=== PATIENT | female | born 1975 | race Caucasian/White ===

== ENCOUNTER 2017-06-21 22:38 | Inpatient (IN) | payer MEDICARE, OTHER ==
[~2017-06-21] VITALS: Ht 157.5 cm; Wt 57.6 kg
[~2017-06-21 22:38] MED LIST: COLACE 100MG C100 MG PO
[2017-06-22 00:21] LABS: HEMOGLOBIN 11.8 gm/dl (12.3-15.3); RED BLOOD COUNT 4.11 M/UL (4.00-5.10); WHITE BLOOD COUNT 5.1 K/UL (4.5-11.0)
[2017-06-23 03:19] LABS: HEMOGLOBIN 11.7 gm/dl (12.3-15.3)
[2017-06-23 10:12] LABS: HEMOGLOBIN 11.4 gm/dl (12.3-15.3); RED BLOOD COUNT 3.97 M/UL (4.00-5.10)
[2017-06-23 10:13] LABS: WHITE BLOOD COUNT 8.7 K/UL (4.5-11.0)
[2017-06-24 09:42] LABS: HEMOGLOBIN 12.9 gm/dl (12.3-15.3); WHITE BLOOD COUNT 8.3 K/UL (4.5-11.0)
[2017-06-24 10:31] LABS: RED BLOOD COUNT 4.42 M/UL (4.00-5.10)
[2017-06-24] MEDS ORDERED: TRANDATE 200 M200 MG PO (17:06)
== END 2017-06-25 17:05 | disposition home or self-care (01) | DRG 774 ==
LOC: GENOP 22:38 → OB 23:04
PROVIDERS: Obstetrics & Gynecology; ADMIT Obstetrics & Gynecology
PROC: 10E0XZZ Delivery of Products of Conception, External Approach (ICD-10-PCS; principal; 2017-06-22)
DX: O69.81X0 Labor and delivery complicated by cord around neck, without compression, not applicable or unspecified (principal); O10.92 Unspecified pre-existing hypertension complicating childbirth; O99.113 Other diseases of the blood and blood-forming organs and certain disorders involving the immune mechanism complicating pregnancy, third trimester; Z3A.38 38 weeks gestation of pregnancy; Z37.0 Single live birth; O09.523 Supervision of elderly multigravida, third trimester; O09.43 Supervision of pregnancy with grand multiparity, third trimester; D69.6 Thrombocytopenia, unspecified; H54.0 Blindness, both eyes
CPT/HCPCS: 36415; 51702; 82800; 83735; 85014; 85018; 85025; J0290; J0610; J1580; J2405; J2590; J2795; J3010; J7050; J7120

== ENCOUNTER 2021-10-01 19:44 | Inpatient (IN) | payer MEDICARE, OTHER ==
[~2021-10-01] VITALS: Ht 157.5 cm; Wt 67.6 kg
[~2021-10-01 19:44] MED LIST changes: +FEOSOL325 MG PO; +TRANDATE 200 M200 MG PO
[2021-10-01 22:19] LABS: HEMOGLOBIN 12.9 gm/dl (12.3-15.3); RED BLOOD COUNT 3.76 M/UL (4.00-5.10); WHITE BLOOD COUNT 5.3 K/UL (4.5-11.0)
[2021-10-02] MEDS ORDERED: PRENATABS RX T1 EACH PO (00:11)
[2021-10-02] MEDS ORDERED: NIFEDIPINE ER30 MG PO (00:21)
[2021-10-05] MEDS ORDERED: DOCUSATE SODIU250 MG PO (13:47)
[2021-10-05] MEDS ORDERED: TRANDATE 100 M100 MG PO (13:47)
[2021-10-05] MEDS ORDERED: IBUPROFEN600 MG PO (13:47)
[2021-10-05] MEDS ORDERED: HYDROCODONE-AC1 EACH PO (13:47)
== END 2021-10-05 17:45 | disposition home or self-care (01) | DRG 786 ==
LOC: OB 19:44
PROVIDERS: Obstetrics & Gynecology; ADMIT Obstetrics & Gynecology
PROC: 10907ZC Drainage of Amniotic Fluid, Therapeutic from Products of Conception, Via Natural or Artificial Opening (ICD-10-PCS; 2021-10-03)
PROC: 10D00Z1 Extraction of Products of Conception, Low, Open Approach (ICD-10-PCS; principal; 2021-10-03 01:11)
DX: O76 Abnormality in fetal heart rate and rhythm complicating labor and delivery (principal); O41.1230 Chorioamnionitis, third trimester, not applicable or unspecified; Z3A.39 39 weeks gestation of pregnancy; Z20.822 Contact with and (suspected) exposure to COVID-19; Z37.0 Single live birth; O13.4 Gestational [pregnancy-induced] hypertension without significant proteinuria, complicating childbirth; O24.420 Gestational diabetes mellitus in childbirth, diet controlled; O62.1 Secondary uterine inertia; O62.2 Other uterine inertia; H54.8 Legal blindness, as defined in USA
CPT/HCPCS: 36415; 81001; 82962; 83735; 85014; 85018; 85025; C9113; J0290; J0360; J0610; J0690; J1170; J1580; J2274; J2300; J2405; J2550; J2590; J2795; J3010; J3475; J7120; U0002

== ENCOUNTER 2021-11-04 17:26 | Emergency (ER) | payer MEDICARE, OTHER ==
[~2021-11-04 17:26] MED LIST changes: +DOCUSATE SODIU250 MG PO; +HYDROCODONE-AC1 EACH PO; +IBUPROFEN600 MG PO; +NIFEDIPINE ER30 MG PO; +PRENATABS RX T1 EACH PO; +TRANDATE 100 M100 MG PO
[2021-11-04 18:00] LABS: RED BLOOD COUNT 4.54 M/UL (4.00-5.10); WHITE BLOOD COUNT 4.6 K/UL (4.5-11.0)
[2021-11-04 18:28] LABS: BUN/CREATININE RATIO 12 (0-10)
== END 2021-11-04 18:15 | disposition home or self-care (01) ==
LOC: ER1 17:26
PROVIDERS: Emergency Medicine
DX: O14.95 Unspecified pre-eclampsia, complicating the puerperium (principal); Z20.822 Contact with and (suspected) exposure to COVID-19
CPT/HCPCS: 71045; 80053; 82550; 82553; 83615; 83874; 84484; 85025; 85610; 85730; 93005; 96374; 99284; J0360; J2060; U0002

== ENCOUNTER 2021-11-04 18:19 | Inpatient (IN) | payer MEDICARE, OTHER ==
[~2021-11-04] VITALS: Ht 157.5 cm; Wt 54.4 kg
[2021-11-05 18:11] LABS: HEMOGLOBIN 14.7 gm/dl (12.3-15.3); RED BLOOD COUNT 4.43 M/UL (4.00-5.10); WHITE BLOOD COUNT 5.5 K/UL (4.5-11.0)
[2021-11-05 18:38] LABS: BUN/CREATININE RATIO 12 (0-10)
[2021-11-07 05:22] LABS: BUN/CREATININE RATIO 14 (0-10)
[2021-11-07] MEDS ORDERED: ATORVASTATIN CA20 MG PO (15:47)
[2021-11-07] MEDS ORDERED: LABETALOL HCL100 MG PO (15:47)
[2021-11-07] MEDS ORDERED: ASPIRIN EC81 MG PO (15:47)
[2021-11-07] MEDS ORDERED: CATAPRES 0.1MG0.1 MG PO (15:47)
[2021-11-07] MEDS ORDERED: AMLODIPINE BESYL5 MG PO (15:47)
[2021-11-07] MEDS ORDERED: STOOL SOFTENER250 MG PO (15:47)
== END 2021-11-07 19:25 | disposition home or self-care (01) | DRG 776 ==
LOC: OB 18:19 → M/S 11-06 16:29
PROVIDERS: Internal Medicine Infectious Disease; ADMIT Obstetrics & Gynecology
DX: O99.355 Diseases of the nervous system complicating the puerperium (principal); G45.9 Transient cerebral ischemic attack, unspecified; I67.4 Hypertensive encephalopathy; O99.893 Other specified diseases and conditions complicating puerperium; R47.81 Slurred speech; Z20.822 Contact with and (suspected) exposure to COVID-19; H54.7 Unspecified visual loss; Z98.890 Other specified postprocedural states; Z82.3 Family history of stroke; Z79.899 Other long term (current) drug therapy; Z79.82 Long term (current) use of aspirin
CPT/HCPCS: ECHO; 36415; 70450; 70544; 70551; 71045; 80048; 80053; 80061; 81001; 82550; 82553; 82962; 83615; 83735; 83874; 84484; 84550; 85025; 85384; 85610; 85730; 93005; 93306; 93880; 96360; 96366; 96374; 99284; J0360; J1200; J2060; J2765; J3475; J7120; U0002

== ENCOUNTER 2021-11-23 02:41 | Emergency (ER) | payer MEDICARE, OTHER ==
[~2021-11-23 02:41] MED LIST changes: +AMLODIPINE BESYL5 MG PO; +ASPIRIN EC81 MG PO; +ATORVASTATIN CA20 MG PO; +CATAPRES 0.1MG0.1 MG PO; +LABETALOL HCL100 MG PO; +STOOL SOFTENER250 MG PO
[2021-11-23 03:54] LABS: HEMOGLOBIN 14.5 gm/dl (12.3-15.3); RED BLOOD COUNT 4.59 M/UL (4.00-5.10); WHITE BLOOD COUNT 5.1 K/UL (4.5-11.0)
[2021-11-23 04:00] LABS: BUN/CREATININE RATIO 11 (0-10)
== END 2021-11-23 05:15 | disposition home or self-care (01) ==
LOC: ER1 02:41
PROVIDERS: Student in an Organized Health Care Education/Training Program
DX: I10 Essential (primary) hypertension (principal)
CPT/HCPCS: 80048; 80076; 81001; 82550; 82553; 84484; 85025; 93005; 99284

== ENCOUNTER 2021-12-08 21:19 | Emergency (ER) | payer MEDICARE, OTHER ==
[~2021-12-08 21:19] MED LIST changes: +HYDROCHLOROTH12.5 MG PO; +OMNICEF 300 MG300 MG PO
[2021-12-09] MEDS ORDERED: LISINOPRIL5 MG PO (00:53)
[2021-12-09] MEDS ORDERED: CATAPRES 0.1MG0.1 MG PO (00:55)
== END 2021-12-09 01:07 | disposition home or self-care (01) ==
LOC: ER1 21:19
DX: Z76.0 Encounter for issue of repeat prescription (principal); I10 Essential (primary) hypertension; Z88.8 Allergy status to other drugs, medicaments and biological substances
CPT/HCPCS: 99281

== ENCOUNTER 2021-12-10 10:36 | Emergency (ER) | payer MEDICARE, OTHER ==
[~2021-12-10 10:36] MED LIST changes: +LISINOPRIL5 MG PO
[2021-12-10 11:54] LABS: HEMOGLOBIN 14.2 gm/dl (12.3-15.3); RED BLOOD COUNT 4.37 M/UL (4.00-5.10); WHITE BLOOD COUNT 3.6 K/UL (4.5-11.0)
[2021-12-10 12:11] LABS: BUN/CREATININE RATIO 12 (0-10)
== END 2021-12-10 11:31 | disposition home or self-care (01) ==
LOC: ER1 10:36
PROVIDERS: Physician Assistant
DX: I10 Essential (primary) hypertension (principal); E87.6 Hypokalemia; Z79.82 Long term (current) use of aspirin
CPT/HCPCS: 80048; 82550; 82553; 84484; 85025; 93005; 99283

== ENCOUNTER 2022-01-05 20:05 | Emergency (ER) | payer MEDICARE, OTHER ==
[2022-01-05 21:00] LABS: HEMOGLOBIN 13.6 gm/dl (12.3-15.3); RED BLOOD COUNT 4.19 M/UL (4.00-5.10); WHITE BLOOD COUNT 5.6 K/UL (4.5-11.0)
[2022-01-05 21:21] LABS: BUN/CREATININE RATIO 15 (0-10)
[2022-01-05] MEDS ORDERED: LOPRESSOR 50 MG50 MG GT (23:54)
== END 2022-01-06 00:05 | disposition home or self-care (01) ==
LOC: ER1 20:05
PROVIDERS: Physician Assistant Medical
DX: R51.9 Headache, unspecified (principal); I10 Essential (primary) hypertension; Z91.040 Latex allergy status; Z88.8 Allergy status to other drugs, medicaments and biological substances
CPT/HCPCS: 70450; 71045; 80053; 82550; 82553; 84484; 85025; 93005; 99284

== ENCOUNTER 2022-01-29 20:20 | Emergency (ER) | payer MEDICARE, OTHER ==
[~2022-01-29 20:20] MED LIST changes: +LOPRESSOR 50 MG50 MG GT
[2022-01-29 21:08] LABS: HEMOGLOBIN 14.2 gm/dl (12.3-15.3); RED BLOOD COUNT 4.37 M/UL (4.00-5.10); WHITE BLOOD COUNT 3.2 K/UL (4.5-11.0)
[2022-01-29 21:33] LABS: BUN/CREATININE RATIO 13 (0-10)
== END 2022-01-30 03:47 | disposition home or self-care (01) ==
LOC: ER1 20:20
PROVIDERS: Physician Assistant Medical
DX: I10 Essential (primary) hypertension (principal); Z88.8 Allergy status to other drugs, medicaments and biological substances; Z91.040 Latex allergy status
CPT/HCPCS: 71045; 80053; 82550; 82553; 84484; 85025; 93005; 99283

== ENCOUNTER 2022-02-01 23:38 | Emergency (ER) | payer MEDICARE, OTHER ==
[2022-02-02 00:33] LABS: HEMOGLOBIN 14.9 gm/dl (12.3-15.3); RED BLOOD COUNT 4.59 M/UL (4.00-5.10); WHITE BLOOD COUNT 3.3 K/UL (4.5-11.0)
[2022-02-02 00:57] LABS: BUN/CREATININE RATIO 18 (0-10)
== END 2022-02-02 04:48 | disposition home or self-care (01) ==
LOC: ER1 23:38
PROVIDERS: Family Medicine
DX: R07.9 Chest pain, unspecified (principal); L29.9 Pruritus, unspecified; I10 Essential (primary) hypertension; F41.9 Anxiety disorder, unspecified; Z88.8 Allergy status to other drugs, medicaments and biological substances
CPT/HCPCS: 71046; 80053; 82550; 82553; 84484; 85025; 93005; 99285

== ENCOUNTER → 2022-02-15 | Outpatient (CLI) | payer MEDICARE, OTHER | LOC: KOH-I 08:15 | DX: R10.84 Generalized abdominal pain (principal); K80.80 Other cholelithiasis without obstruction | CPT/HCPCS: 76700 ==

== ENCOUNTER → 2022-03-07 | Outpatient (CLI) | payer MEDICARE, OTHER ==
[~2022-03-07] MED LIST changes: +MELOXICAM15 MG PO
== END ==
LOC: MRI 02-28 11:00
DX: R16.0 Hepatomegaly, not elsewhere classified (principal); D18.03 Hemangioma of intra-abdominal structures; K80.20 Calculus of gallbladder without cholecystitis without obstruction
CPT/HCPCS: 74183; A9577

== ENCOUNTER 2022-03-12 12:55 | Emergency (ER) | payer MEDICARE, OTHER ==
[~2022-03-12 12:55] MED LIST changes: -MELOXICAM15 MG PO
[2022-03-12 13:42] LABS: HEMOGLOBIN 15.1 gm/dl (12.3-15.3); RED BLOOD COUNT 4.68 M/UL (4.00-5.10); WHITE BLOOD COUNT 4.3 K/UL (4.5-11.0)
[2022-03-12 14:11] LABS: BUN/CREATININE RATIO 14 (0-10)
[2022-03-12] MEDS ORDERED: MELOXICAM15 MG PO (17:31)
== END 2022-03-12 17:39 | disposition home or self-care (01) ==
LOC: ER1 12:55
PROVIDERS: Emergency Medicine
DX: R07.89 Other chest pain (principal); R51.9 Headache, unspecified; I10 Essential (primary) hypertension; H54.7 Unspecified visual loss; Z91.040 Latex allergy status
CPT/HCPCS: 70450; 71045; 80053; 82550; 82553; 83690; 84484; 84703; 85025; 85379; 93005; 96374; 96375; 99285; J1200; J1885; J2765